=== PATIENT | female | born 1960 | race Caucasian/White ===

== ENCOUNTER 2018-06-16 22:23 | Emergency (ER) | payer OTHER ==
[~2018-06-16] VITALS: Ht 157.5 cm; Wt 54.4 kg
[2018-06-17] MEDS ORDERED: MORPHINE SULFATE 4 MG/ML SYR/VIAL IV ONE ×2 (00:45→05:00)
[2018-06-17] MEDS ORDERED: ONDANSETRON HCL 4 MG/2 ML VIAL IV ONE ×2 (00:45→05:00)
[2018-06-17] MEDS ORDERED: SODIUM CHLORIDE 0.9% 1,000 ML IV ONE ×3 (00:45→02:00)
[2018-06-17] MEDS ORDERED: SODIUM CHLORIDE 0.9% 2,000 ML IV ONE (01:00)
[2018-06-17] MEDS: HYDROmorphone HCL 2 MG/ML VL IV ONE (01:30)
[2018-06-17] MEDS ORDERED: HYDROmorphone HCL 2 MG/ML VL IV ONE (01:30)
[2018-06-17 01:34] LABS: Basophils # (auto) 0.2 uL; Basophils % (auto) 1.1 % (0.0-2.0); Eosinophils # (auto) 0 uL; Hemoglobin 12.2 g/dL (12.2-16.2); Lymphocytes # (auto) 0.7 uL; Lymphocytes % (auto) 4.2 % (10.0-50.0); Mean Corpuscular Hgb Conc. 32.9 g/dL (32.0-36.0); Monocytes # (auto) 1.1 uL; Monocytes % (auto) 6.5 % (0.0-12.0); Neutrophils # (auto) 14.5 uL; Neutrophils % (auto) 88.2 % (37.0-80.0); Platelet Count (auto) 405 10^3/uL (140-450); Red Blood Cells 4.21 10^6/uL (4.0-5.20); Red Cell Distribution Width 13.2 % (11.8-14.3); White Blood Cell 16.5 10^3/uL (4.4-10.8)
[2018-06-17 01:54] LABS: Alanine Aminotransferase 31 U/L (13-56); Albumin 4.2 g/dL (3.4-5.0); Amylase 54 U/L (25-115); Anion Gap 10 (5-15); Aspartate Aminotransferase 21 U/L (15-37); BUN/Creatinine Ratio 7.9; Blood Urea Nitrogen 6 mg/dL (7-18); Calcium 9.6 mg/dL (8.5-10.1); Carbon Dioxide 23 mmol/L (21-32); Chloride 104 mmol/L (98-107); GFR African American 101 mL/min; GFR Non-African American 84 mL/min; Glucose 119 mg/dL (74-106); Lipase 86 U/L (73-393); Potassium 3.5 mmol/L (3.5-5.1); Sodium 137 mmol/L (136-145)
[2018-06-17 01:58] LABS: Alkaline Phosphatase 121 U/L (45-117); Bilirubin, Total 0.7 mg/dL (0.2-1.0); Total Protein 8.1 g/dL (6.4-8.2)
[2018-06-17] MEDS ORDERED: ACETAMINOPHEN 650 MG RECT SUPP PR ONE (02:00)
[2018-06-17] MEDS ORDERED: cefTRIAXone 1GM/50ML D5W 50 ML IV ONE ×2 (02:00)
[2018-06-17 02:39] LABS: Urine Bacteria FEW /hpf (None Seen); Urine Blood Negative /uL (Negative); Urine Specific Gravity 1.007 (1.001-1.035); Urine WBC 1 /hpf (0 - 5)
[2018-06-17 04:45] VITALS: BP 109/67
[2018-06-17] MEDS ORDERED: MORPHINE SULFATE 4 MG/ML SYR/VIAL ONE (05:06)
[2018-06-17] MEDS ORDERED: ONDANSETRON HCL 4 MG/2 ML VIAL ONE (05:06)
== END 2018-06-17 03:27 | disposition short-term general hospital (02) ==
LOC: EDBD 22:23 → ER 22:27
DX: K37 Unspecified appendicitis (principal); Z90.710 Acquired absence of both cervix and uterus; Z87.442 Personal history of urinary calculi
CPT/HCPCS: 36415; 74176; 80053; 81001; 82150; 83690; 84484; 85025; 87040; 96361; 96365; 96375; 96376; 99285; J0696; J1170; J2270; J2405; J7030; 87077; 87186